=== PATIENT | male | born 1940 | race Caucasian/White ===

== ENCOUNTER 2023-06-27 11:56 | Inpatient (IN) | payer OTHER, BC ==
[~2023-06-27] VITALS: Ht 177.8 cm; Wt 107.1 kg
[2023-06-27 12:00] VITALS: BP_SYST 108; PULSE 63; RESP 19; TEMP 98.1; O2SAT 86
[2023-06-27 12:39] LABS: BASOPHILS % (AUTO) 0.6 % (0.0-2.0); EOSINOPHILS # (AUTO) 0.4 K/uL (0.0-0.4); EOSINOPHILS % (AUTO) 6.1 % (0.0-4.0); HEMATOCRIT 26.2 % (36-54); HEMOGLOBIN 8.4 g/dL (14.0-18.0); LYMPHOCYTES # (AUTO) 0.7 K/uL (1.0-5.5); LYMPHOCYTES % (AUTO) 12.5 % (20.5-51.5); MEAN CORPUSCULAR HEMOGLOBIN 31 pg (27-31); MEAN CORPUSCULAR HGB CONC 32 % (32-36); MEAN CORPUSCULAR VOLUME 96 fL (79.0-98.0); MONOCYTES # (AUTO) 0.9 K/uL (0.0-1.0); MONOCYTES % (AUTO) 14.3 % (1.7-9.3); NEUTROPHILS % (AUTO) 66.5 % (40.0-70.0); PLATELET COUNT (AUTO) 204 K/uL (130-430); RED BLOOD CELL COUNT(AUTO) 2.73 MIL/uL (4.2-6.2)
[2023-06-27 12:59] LABS: INR 1.1 (0.80-1.20); PROTHROMBIN TIME 11.8 SECS (9.5-12.5)
[2023-06-27 13:00] LABS: ANION GAP 5 (5-15); CALCIUM 8.5 mg/dL (8.4-11.0); CARBON DIOXIDE 32 mmol/L (23-29); CHLORIDE 101 mmol/L (98-107); CREATININE 3.11 mg/dL (0.55-1.30); GLUCOSE 109 mg/dL (74-106); POTASSIUM 4.2 mmol/L (3.5-5.1); SODIUM SERUM 138 mmol/L (136-145); UREA NITROGEN, BLOOD 29 mg/dL (8-21)
[2023-06-27] MEDS ORDERED: AMLO5TAB92 PO (13:16)
[2023-06-27] MEDS ORDERED: CARV6.2554 PO (13:16)
[2023-06-27] MEDS ORDERED: DICL100G60 TP (13:16)
[2023-06-27] MEDS ORDERED: DEXT-150 PO (13:16)
[2023-06-27] MEDS ORDERED: INSU100V9 SQ (13:16)
[2023-06-27] MEDS ORDERED: TRIA15CR4 TP (13:16)
[2023-06-27] MEDS ORDERED: PROC-1 PO (13:17)
[2023-06-27] MEDS ORDERED: FOLI0.8T41 PO (13:17)
[2023-06-27] MEDS ORDERED: LOM2.5 PO (13:17)
[2023-06-27] MEDS ORDERED: INSU100V SQ (13:17)
[2023-06-27] MEDS ORDERED: DORZ10DR10 BOTH EYES (13:17)
[2023-06-27] MEDS ORDERED: NEU100 PO (13:17)
[2023-06-27] MEDS ORDERED: NETA2.5D BOTH EYES (13:17)
[2023-06-27] MEDS ORDERED: SACU1TAB7 PO (13:17)
[2023-06-27] MEDS ORDERED: LORA0.5T PO (13:17)
[2023-06-27] MEDS ORDERED: DICY10CA59 PO (13:17)
[2023-06-27] MEDS ORDERED: ONDA8TAB9 PO (13:17)
[2023-06-27] MEDS ORDERED: ASPI1CPM7 PO (13:17)
[2023-06-27] MEDS ORDERED: LOPE-178 PO (13:17)
[2023-06-27] MEDS ORDERED: FURO80TA3 PO (13:17)
[2023-06-27] MEDS ORDERED: D-ME120S20 PO (13:17)
[2023-06-27] MEDS ORDERED: ATOR20TA64 PO (13:17)
[2023-06-27] MEDS ORDERED: ALPHAGAN1 BOTH EYES (13:17)
[2023-06-27] MEDS ORDERED: HYDR-4038 PO (13:17)
[2023-06-27] MEDS ORDERED: BIMA2.5D5 BOTH EYES (13:17)
[2023-06-27] MEDS ORDERED: PRO40 PO (13:32)
[2023-06-27] MEDS ORDERED: SUCR500T PO (13:32)
[2023-06-27] MEDS ORDERED: LACT10SO6 PO (13:32)
[2023-06-27] MEDS ORDERED: ISOS60TA71 PO (13:32)
[2023-06-27] MEDS ORDERED: FOLI-43 PO (13:32)
[2023-06-27] MEDS ORDERED: TRAM50TA2 PO (13:32)
[2023-06-27] MEDS ORDERED: TRAM50TA PO (13:32)
[2023-06-27] MEDS ORDERED: OXYC-117 PO (13:32)
[2023-06-27] MEDS ORDERED: CYAN100T44 PO (13:32)
[2023-06-27] MEDS ORDERED: ZINC220T3 PO (13:32)
[2023-06-27] MEDS ORDERED: SORB1SOL2 PO (13:32)
[2023-06-27] MEDS ORDERED: POLY119P2 PO (13:33)
[2023-06-27] MEDS ORDERED: ACET-2634 PO (13:33)
[2023-06-27] MEDS ORDERED: MELA10TA2 PO (13:33)
[2023-06-27] MEDS ORDERED: ESCI20TA PO (13:33)
[2023-06-27] MEDS ORDERED: [UNRECOGNIZED DRUG - CODE] PO (13:33)
[2023-06-27] MEDS ORDERED: IPRA4AER INH (13:33)
[2023-06-27] MEDS: NS 500 ML IV ONE (14:54)
[2023-06-27] MEDS ORDERED: MORPHINE 2 MG/ML INJ. SYRINGE IVP PRN ×2 (16:00)
[2023-06-27] MEDS ORDERED: DEXTROSE 50% JECT 50 ML DISP.SYRIN IVP PRN (16:00)
[2023-06-27] MEDS ORDERED: LORazepam 2 MG/ML VIAL IVP PRN (16:00)
[2023-06-27] MEDS ORDERED: MUPIROCIN 2% TOPICAL OINTMENT 22 GM NS PRN (16:00)
[2023-06-27] MEDS ORDERED: MAGNESIUM SULFATE 50 ML IV PRN (16:00)
[2023-06-27] MEDS ORDERED: ACETAMINOPHEN 500 MG TABLET PO PRN ×2 (16:00→16:15)
[2023-06-27] MEDS ORDERED: ONDANSETRON HCL 4 MG/2 ML VIAL IVP PRN (16:00)
[2023-06-27] MEDS ORDERED: ZOLPIDEM TARTRATE 5 MG TABLET PO PRN (16:00)
[2023-06-27] MEDS ORDERED: POTASSIUM CHLORIDE 20 MEQ TABLET.ER PO PRN (16:00)
[2023-06-27] MEDS ORDERED: DOCUSATE SODIUM 100 MG CAPSULE PO PRN (16:00)
[2023-06-27] MEDS ORDERED: IPRATROPIUM/ALBUTEROL SULFATE 3 ML AMPUL.NEB (DUONEB) INH PRN (16:15)
[2023-06-27 16:27] VITALS: PULSE 66; O2SAT 94
[2023-06-27 19:00] VITALS: BP_SYST 141; PULSE 61; RESP 16; TEMP 97.8; O2SAT 95
[2023-06-27] MEDS: ATORVASTATIN 20 MG TABLET PO SCH (21:00)
[2023-06-27] MEDS: CARVEDILOL 6.25 MG TABLET (COREG) PO SCH (21:00)
[2023-06-27] MEDS: LATANOPROST 2.5 ML DROPS (XALATAN) BOTH EYES SCH (21:00)
[2023-06-27] MEDS: DORZOLAMIDE HCL/TIMOLOL MAL. 10 ML EYE DROPS (COSOPT) BOTH EYES SCH (21:00)
[2023-06-27] MEDS ORDERED: BIMATOPROST 0.01%, 2.5 ML EYE DROPS BOTH EYES SCH (21:00)
[2023-06-27] MEDS: hydrALAZINE HCL 25 MG TABLET PO SCH (21:01)
[2023-06-27] MEDS: GABAPENTIN 100 MG CAPSULE PO SCH (21:01)
[2023-06-27] MEDS: HEPARIN SODIUM,PORCINE 5,000 UNITS/ML VIAL SUBCUT SCH (23:53)
[2023-06-28] VITALS: BP_SYST 148; PULSE 60; RESP 17; TEMP 97.8; O2SAT 96
[2023-06-28 04:54] LABS: BASOPHILS # (AUTO) 0.1 K/uL (0.0-0.2); EOSINOPHILS # (AUTO) 0.5 K/uL (0.0-0.4); EOSINOPHILS % (AUTO) 9.4 % (0.0-4.0); HEMOGLOBIN 8.1 g/dL (14.0-18.0); LYMPHOCYTES # (AUTO) 0.9 K/uL (1.0-5.5); LYMPHOCYTES % (AUTO) 15.9 % (20.5-51.5); MEAN CORPUSCULAR HEMOGLOBIN 31 pg (27-31); MEAN CORPUSCULAR HGB CONC 33 % (32-36); MEAN CORPUSCULAR VOLUME 96 fL (79.0-98.0); MONOCYTES # (AUTO) 0.8 K/uL (0.0-1.0); MONOCYTES % (AUTO) 14.6 % (1.7-9.3); NEUTROPHILS # (AUTO) 3.3 K/uL (1.8-7.7); NEUTROPHILS % (AUTO) 59.1 % (40.0-70.0); PLATELET COUNT (AUTO) 196 K/uL (130-430); RED BLOOD CELL COUNT(AUTO) 2.61 MIL/uL (4.2-6.2); RED CELL DISTRIBUTION WIDTH 17.8 % (9.0-15.0); WHITE BLOOD COUNT (AUTO) 5.6 K/uL (4.8-10.8)
[2023-06-28 05:02] LABS: ANION GAP 7 (5-15); CALCIUM 8.4 mg/dL (8.4-11.0); CARBON DIOXIDE 31 mmol/L (23-29); CHLORIDE 99 mmol/L (98-107); CREATININE 3.71 mg/dL (0.55-1.30); GLUCOSE 78 mg/dL (74-106); POTASSIUM 4.2 mmol/L (3.5-5.1); SODIUM SERUM 137 mmol/L (136-145); UREA NITROGEN, BLOOD 33 mg/dL (8-21)
[2023-06-28 08:00] VITALS: BP_SYST 138; PULSE 65; RESP 14; TEMP 98.8; O2SAT 95
[2023-06-28] MEDS: CITALOPRAM HYDROBROMIDE 20 MG TABLET PO SCH (08:44)
[2023-06-28] MEDS: ISOSORBIDE MONONITRATE 30 MG TAB.ER.24H PO SCH (08:46)
[2023-06-28] MEDS: CYANOCOBALAMIN (VITAMIN B-12) 1,000 MCG TABLET PO SCH (08:46)
[2023-06-28] MEDS: NEPHROVITE, (FOLIC ACID/VITAMIN B COMP W-C 1 TAB) PO SCH (08:47)
[2023-06-28] MEDS: FUROSEMIDE 80 MG TABLET PO SCH (08:48)
[2023-06-28] MEDS: amLODIPine BESYLATE 5 MG TABLET PO SCH (08:53)
[2023-06-28] MEDS ORDERED: NON-FORMULARY MEDICATION (Cyanocobalamin (Vitamin B-12) 1 TAB) PO SCH (09:00)
[2023-06-28] MEDS ORDERED: ESCITALOPRAM OXALATE 10 MG TABLET PO SCH (09:00)
[2023-06-28] MEDS ORDERED: CALCIUM CARBONATE PO SCH (09:00)
[2023-06-28] MEDS: CALCIUM CARBONATE 500 MG/ TAB.CHEW PO SCH (09:00)
[2023-06-28] MEDS: ATORVASTATIN 20 MG TABLET PO ONE (11:23)
[2023-06-28] MEDS: ASPIRIN 325 MG TABLET PO ONE (11:24)
[2023-06-28 12:00] VITALS: BP_SYST 110; PULSE 56; RESP 14; TEMP 97.7; O2SAT 94
[2023-06-28 16:00] VITALS: BP_SYST 136; PULSE 56; RESP 14; TEMP 98.8; O2SAT 96
[2023-06-28 19:00] VITALS: O2SAT 95
[2023-06-28 19:01] VITALS: BP_SYST 110; PULSE 56; RESP 14; TEMP 98.8; O2SAT 94
[2023-06-28] MEDS: CARVEDILOL 3.125 MG TABLET (COREG) PO SCH (21:00)
[2023-06-28] MEDS: SACUBITRIL/VALSARTAN 24 MG-26 MG 1 TABLET PO SCH (23:37)
[2023-06-29] VITALS: BP_SYST 134; PULSE 62; RESP 16; TEMP 98.2; O2SAT 96
[2023-06-29 05:18] LABS: BASOPHILS % (AUTO) 0.9 % (0.0-2.0); EOSINOPHILS # (AUTO) 0.3 K/uL (0.0-0.4); EOSINOPHILS % (AUTO) 8.3 % (0.0-4.0); HEMATOCRIT 25.8 % (36-54); HEMOGLOBIN 8.4 g/dL (14.0-18.0); LYMPHOCYTES # (AUTO) 0.6 K/uL (1.0-5.5); LYMPHOCYTES % (AUTO) 13.4 % (20.5-51.5); MEAN CORPUSCULAR HEMOGLOBIN 31 pg (27-31); MEAN CORPUSCULAR HGB CONC 33 % (32-36); MEAN CORPUSCULAR VOLUME 95 fL (79.0-98.0); MONOCYTES # (AUTO) 0.5 K/uL (0.0-1.0); MONOCYTES % (AUTO) 12.1 % (1.7-9.3); NEUTROPHILS # (AUTO) 2.7 K/uL (1.8-7.7); NEUTROPHILS % (AUTO) 65.3 % (40.0-70.0); PLATELET COUNT (AUTO) 181 K/uL (130-430); RED BLOOD CELL COUNT(AUTO) 2.73 MIL/uL (4.2-6.2); RED CELL DISTRIBUTION WIDTH 17.9 % (9.0-15.0); WHITE BLOOD COUNT (AUTO) 4.1 K/uL (4.8-10.8)
[2023-06-29 05:40] LABS: ANION GAP 5 (5-15); CALCIUM 8.3 mg/dL (8.4-11.0); CARBON DIOXIDE 31 mmol/L (23-29); CHLORIDE 97 mmol/L (98-107); CREATININE 2.93 mg/dL (0.55-1.30); GLUCOSE 138 mg/dL (74-106); POTASSIUM 3.9 mmol/L (3.5-5.1); SODIUM SERUM 133 mmol/L (136-145); UREA NITROGEN, BLOOD 25 mg/dL (8-21)
[2023-06-29 08:10] VITALS: O2SAT 95
[2023-06-29 08:16] VITALS: BP_SYST 172; PULSE 69; RESP 18; TEMP 98.4; O2SAT 93
[2023-06-29] MEDS ORDERED: ASPI-1393 PO (08:26)
[2023-06-29] MEDS: ATORVASTATIN 20 MG TABLET PO SCH (11:26)
[2023-06-29] MEDS: ASPIRIN 81 MG TAB.CHEW PO SCH (11:28)
[2023-06-29] MEDS: INSULIN LISPRO SLIDING SCALE 100 UNITS/ML, 3 ML VIAL (humaLOG) SUBCUT PRN (11:51)
[2023-06-29 12:45] VITALS: BP_SYST 165; PULSE 64; RESP 18; TEMP 97.4; O2SAT 95
[2023-06-29 12:52] VITALS: BP_SYST 165; PULSE 64; RESP 18; TEMP 97.4; O2SAT 95
== END 2023-06-29 13:47 | disposition home or self-care (01) | DRG 280 ==
LOC: SED 11:56 → STU 16:10
PROVIDERS: ADMIT General Practice; ATTEND General Practice
PROC: 5A1D70Z Performance of Urinary Filtration, Intermittent, Less than 6 Hours Per Day (ICD-10-PCS; principal; 2023-06-28)
DX: I13.2 Hypertensive heart and chronic kidney disease with heart failure and with stage 5 chronic kidney disease, or end stage renal disease (principal); I50.43 Acute on chronic combined systolic (congestive) and diastolic (congestive) heart failure; I21.A1 Myocardial infarction type 2; N17.0 Acute kidney failure with tubular necrosis; N18.6 End stage renal disease; J90 Pleural effusion, not elsewhere classified; I95.1 Orthostatic hypotension; Z96.651 Presence of right artificial knee joint; E78.5 Hyperlipidemia, unspecified; E11.22 Type 2 diabetes mellitus with diabetic chronic kidney disease; D63.1 Anemia in chronic kidney disease; Z86.73 Personal history of transient ischemic attack (TIA), and cerebral infarction without residual deficits; Z88.1 Allergy status to other antibiotic agents; Z91.013 Allergy to seafood
CPT/HCPCS: 36415; 71045; 80048; 82948; 83037; 83735; 83880; 84484; 85025; 85610; 85730; 87081; 90935; 93005; 93306; 94760; 96360; 97110-GP; 97112-GP; 97116-GP; 97530-GP; 99285; G0378; J1644